=== PATIENT | female | born 1965 | race Two or more races ===

== ENCOUNTER 2017-07-21 12:16 | Emergency (ER) | payer OTHER ==
[~2017-07-21] VITALS: Ht 162.6 cm; Wt 78.9 kg
[2017-07-21] MEDS ORDERED: LIPITOR20 MG (12:46)
== END 2017-07-21 14:33 | disposition home or self-care (01) ==
LOC: ER 12:16
DX: M94.0 Chondrocostal junction syndrome [Tietze] (principal)